=== PATIENT | female | born 1950 | race Caucasian/White ===

== ENCOUNTER 2017-07-12 14:34 | Outpatient (CLI) | payer MEDICARE, OTHER ==
--- NOTE | 2017-07-12 15:53 | MRI Report ---
EXAM: LEFT KNEE MRI WITHOUT CONTRAST EXAM DATE: 07/12/2017 03:26 PM. CLINICAL HISTORY: Left knee gives out. Possible meniscal tear. History of osteoarthritis in both knee s. COMPARISON: Prior knee x-ray 06/23/2017. TECHNIQUE: Multiplanar, multisequence T1-weighted and fluid-sensitive sequences of the knee without c ontrast. Other: None. FINDINGS: Bones: There is subchondral edema in the lateral aspect of the patella and lateral aspect of the femo ral trochlea. There is tricompartmental osteophyte formation. Articular Cartilage: There is severe thinning of the hyaline cartilage of the patella, denudation of the lateral patellar facet. There is moderate thinning of the hyaline cartilage of both the medial an d lateral compartments. Medial Meniscus: The medial meniscus is intact. Lateral Meniscus: The lateral meniscus is intact. Cruciate Ligaments: The anterior and posterior cruciate ligaments are intact. Collateral Ligaments: The medial collateral and lateral collateral ligamentous structures are intact. Tendons: The quadriceps, patellar, semimembranosus, and popliteus tendons are unremarkable. Musculature: No edema or fatty atrophy. Other: There is a small joint effusion. No popliteal cyst. No loose bodies. The medial and lateral r [place] are intact. The subcutaneous tissues and fat pads are unremarkable. IMPRESSION: 1. Moderate tricompartmental osteoarthritis worst in the patellofemoral compartment. 2. Small joint effusion. [facility] MUSCULOSKELETAL RADIOLOGY SECTION Referring Provider Line: [phone] SITE ID: [id number]
== END 2017-07-12 14:35 | disposition home or self-care (01) ==
LOC: DI 14:34
PROVIDERS: ATTEND Family Medicine
DX: M17.12 Unilateral primary osteoarthritis, left knee (principal); M25.462 Effusion, left knee

== ENCOUNTER 2017-10-29 12:29 | Outpatient (CLI) | payer MEDICARE, OTHER | END 2017-10-29 12:30 | disposition critical access hospital (66) | LOC: EMS 12:29 | PROVIDERS: ATTEND Surgery | DX: R55 Syncope and collapse (principal); R53.1 Weakness; R46.4 Slowness and poor responsiveness | CPT/HCPCS: A0425; A0427 ==

== ENCOUNTER 2017-10-29 12:34 | Emergency (ER) | payer MEDICARE, OTHER ==
--- NOTE | 2017-10-29 13:16 | ED Physician Documentation ---
PD HPI SYNCOPE - Stated complaint Stated Complaint: SYNCOPE/ SZ - Chief complaint Chief Complaint: Neuro - History obtained from History obtained from: Patient - History of Present Illness Witnessed: Witnessed (by and churchgoers.) Timing - onset: Today Duration: Minutes (she had felt somewhat lightheaded this morning but then improved. Some less appetite today and yesterday. [place] well enough to go to [employer]. She felt some lightheaded and nausea while sitting up (had been standing prior to that). saw she looked pale and she slumped over before he could ask her to lie down. She did not fall. Helped to floor and awoke minute or so later. Denies chest nor abd pain. Mild headache.) Preceding symptoms: Nausea / vomiting, Light headed, Generalized weakness. No: Headache, Chest pain, Palpitations, Dyspnea, Abdominal pain Associated symptoms: Headache (after awakening). No: Seizure ( says her hands tremored a bit but no convulsive movements per se.), Chest pain, Palpitations Contributing factors: Decreased PO intake. No: Recent med change, Noxious stimulae, Emotional upset Injury occurred: No: Fell, Head injury, Neck injury Similar symptoms before: No diagnosis (she gets feeling general weakness and lightheaded some mornings but feels better if just lies down for a few minutes.) Recently seen: Not recently seen Review of Systems Constitutional: denies: Fever, Chills, Myalgias Nose: denies: Rhinorrhea / runny nose, Congestion Throat: denies: Sore throat Cardiac: denies: Chest pain / pressure, Palpitations Respiratory: denies: Dyspnea, Cough GI: reports: Nausea (feeling of less appetite the past day or so.). denies: Abdominal Pain, Vomiting, Constipation, Diarrhea : denies: Dysuria, Frequency Musculoskeletal: denies: Neck pain, Back pain Neurologic: reports: Generalized weakness, Syncope. 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 No: Moist mucous membranes - Neck Neck: Supple, no meningeal sign, No adenopathy, Thyroid normal, No JVD - Cardiac Cardiac: RRR, No murmur - Respiratory Respiratory: Clear bilaterally - Abdomen Abdomen: Normal bowel sounds, Soft, Non tender, Non distended - Back Back: No CVA TTP - Derm Derm: Normal color, Warm and dry - Extremities Extremities: No deformity, No tenderness to palpate, Normal ROM s pain, No edema , No calf tenderness / cord - Neuro Neuro: Alert and oriented X 3, computer lab assistant 2-12 intact, No motor deficit, No sensory deficit, Normal speech Eye Opening: Spontaneous Motor: Obeys Commands Verbal: Oriented GCS Score: 15 - Psych Psych: Normal mood Results - Vitals Vitals: Oxygen O2 Source Room air - EKG (time done) 12:41 Rate: Rate (enter#) (76) Rhythm: NSR [place]: Normal Intervals: Normal OK QRS: Normal Ischemia: Normal ST segments. No: ST elevation c/w ischemia, ST elevation c/w repol, ST depression Compare to prior EKG: Old EKG unavailable Computer interpretation: Agree with computer - Labs Labs: Laboratory Tests 10/29/17 10/29/17 10/29/17 12:20 12:20 12:20 WBC 10.5 RBC 3.80 L Hgb 13.1 Hct 37.3 MCV 98.1 MCH 34.5 H MCHC 35.2 RDW 12.5 Plt Count 192 MPV 8.0 Neut # 8.2 H Lymph # 1.0 L [place] # 1.2 H Eos # 0.1 Baso # 0.0 Absolute Nucleated RBC 0.00 Nucleated RBC % 0.0 Sodium 130 L Potassium 4.2 Chloride 95 L Carbon Dioxide 27 Anion Gap 8.0 BUN 13 Creatinine 0.9 Estimated GFR (MDRD) 63 L Glucose 140 H Calcium 8.7 Magnesium 1.7 Total Bilirubin 0.6 AST 36 ALT 25 Alkaline Phosphatase 91 Troponin I Total Protein 9.2 H Albumin 3.5 Globulin 5.7 H Albumin/Globulin Ratio 0.6 L Lipase 38 Last Dose Date UNKNOWN Last Dose Time UNKNOWN Carbamazepine 7.5 10/29/17 12:20 WBC RBC Hgb Hct MCV MCH MCHC RDW Plt Count MPV Neut # Lymph # [place] # Eos # Baso # Absolute Nucleated RBC Nucleated RBC % Sodium Potassium Chloride Carbon Dioxide Anion Gap BUN Creatinine Estimated GFR (MDRD) Glucose Calcium Magnesium Total Bilirubin AST ALT Alkaline Phosphatase Troponin I < 0.04 Total Protein Albumin Globulin Albumin/Globulin Ratio Lipase Last Dose Date Last Dose Time Carbamazepine PD MEDICAL DECISION MAKING - ED course Complexity details: reviewed results, considered differential, d/w patient Departure - Departure Disposition: Home, Self Care Clinical Impression: Syncope Qualifiers: Syncope type: unspecified Qualified Code(s): R55 - Syncope and collapse Condition: Stable Record reviewed to determine appropriate education?: Yes Instructions: ED Fainting Unkn Cause Follow-Up: Joel Ramirez DO [Primary Care Provider] - Comments: Drink lots of fluids. I do not have the obvious cause for your fainting episode. See how you do over the next few days and follow-up with your primary care if persistent lightheadedness or general weakness. It may be a viral type illness at this point with some under hydration. Discharge Date/Time: 10/29/17 15:47
[2017-10-29 13:19] LABS: BASOPHILS % (AUTO) 0.3 %; EOSINOPHILS # (AUTO) 0.1 10^3/uL (0.0-0.7); EOSINOPHILS % (AUTO) 0.9 %; HGB - HEMOGLOBIN 13.1 g/dL (12.0-16.0); LYMPHOCYTES % (AUTO) 9.6 %; MEAN CORPUSCULAR HEMOGLOBIN 34.5 pg (27.0-31.0); MEAN CORPUSCULAR HGB CONC 35.2 g/dL (32.0-36.0); MEAN CORPUSCULAR VOLUME 98.1 fL (81.0-99.0); MONOCYTES # (AUTO) 1.2 10^3/uL (0.0-1.0); MONOCYTES % (AUTO) 11.5 %; NEUTROPHILS # (AUTO) 8.2 10^3/uL (1.5-6.6); NEUTROPHILS % (AUTO) 77.7 %; PLT - PLATELET COUNT 192 10^3/uL (130-450); RED CELL DISTRIBUTION WIDTH 12.5 % (12.0-15.0); WHITE BLOOD COUNT 10.5 x10^3/uL (4.8-10.8)
[2017-10-29 13:24] LABS: ALBUMIN 3.5 g/dL (3.2-5.5); ALBUMIN/GLOBULIN RATIO 0.6 (1.0-2.2); BILIRUBIN,TOTAL 0.6 mg/dL (0.2-1.0); CALCIUM 8.7 mg/dL (8.5-10.3); CREATININE 0.9 mg/dL (0.4-1.0); TOTAL PROTEIN 9.2 g/dL (6.7-8.2)
[2017-10-29] MEDS ORDERED: SODIUM CHLORIDE 0.9% 1,000 ML IV ONE (13:52)
[2017-10-29 14:11] LABS: CARBAMAZEPINE (TEGRETOL) 7.5 ug/mL; MAGNESIUM 1.7 mg/dL (1.7-2.8)
[2017-10-29] MEDS ORDERED: KETOROLAC 60 MG/2 ML VIAL IVP STA (14:43)
[2017-10-29 15:32] VITALS: BP 120/72
== END 2017-10-29 15:47 | disposition home or self-care (01) ==
LOC: EDUNIT# → ED 12:34
DX: R55 Syncope and collapse (principal); R94.31 Abnormal electrocardiogram [ECG] [EKG]
CPT/HCPCS: 36415; 80053; 80156; 83690; 83735; 84484; 85025; 93005; 96361; 96374; 99284

== ENCOUNTER 2020-03-25 12:11 | Outpatient (CLI) | payer MEDICARE, OTHER ==
[2020-03-25] MEDS ORDERED: REGADENOSON 0.4 MG/5 ML SYRINGE IVP ONE ×2 (13:39→16:56)
--- NOTE | 2020-03-25 17:22 | CARDIAC PROCEDURE NOTE ---
DATE OF SERVICE: 03/25/2020 Physician: Radha Perdue MD, [facility] INDICATIONS Poor exercise tolerance, fatigue, R53.83. CARDIAC RISK FACTORS Advanced age, obesity, unknown cholesterol status, and family history of heart disease. DESCRIPTION OF PROCEDURE After signing informed consent, the patient underwent a Lexiscan pharmaceutical stress test with nuclear myocardial perfusion imaging. RESTING HEART RATE: 67. PEAK HEART RATE: 94. RESTING BLOOD PRESSURE: 102/60. PEAK BLOOD PRESSURE: 144/62. Lexiscan was infused per protocol. The patient had brief shortness of breath, then developed a headache, she had no chest pain. She had mild, brief epigastric pressure. Oxygen saturation was 97% on room air throughout the entire test. RESTING EKG: Normal sinus rhythm, first-degree AV block, left atrial enlargement, early R/S transition. EKG AT PEAK: No new ST segment or T-wave changes. SUMMARY 1. Abnormal resting electrocardiogram. 2. No ischemic changes occurred during this pharmaceutical stress test. 3. Nuclear images reported separately. 4. This patient's cardiac risk based on all the above: Moderate. TD: 03/25/2020 16:27 MTDLidia
--- NOTE | 2020-03-26 12:41 | Nuclear Medicine Report ---
PROCEDURE: Rest and exercise myocardial perfusion SPECT with gated imaging and ejection fraction INDICATIONS: LEXISCAN, POOR EXCERSISE RADIOPHARMACEUTICAL: 14.9 mCi Tc-99m Myoview IV at rest and 44.0 mCi Tc-99m Myoview IV at peak exerc ise. [id number] was performed. TECHNIQUE: Radiopharmaceutical was injected at peak stress test, and also at rest. SPECT images wer e obtained. SPECT myocardial perfusion images were displayed in short axis, horizontal long axis, an d vertical long axis views. Gated images were reviewed using Auto[employer] software. COMPARISON: None available. FINDINGS: Raw data: There is good myocardial labeling by radiotracer. No significant motion artifacts. Lung- to-heart ratio is 0.25 (normal is less than 0.38 for tetrafosmin tracer). There is breast attenuatio n artifact in the anterior wall. Left ventricle function: Gated images demonstrate normal left ventricle wall thickening. No segment al wall motion abnormality. No transient ischemic dilation; TID is 0.96 (normal less than 1.3). The left ventricle resting end-diastolic volume is normal. Left ventricle stress ejection fraction is 7 0%; normal values are above 45%. Myocardial perfusion: There is partially reversible perfusion defect in the anterolateral wall and a nterior apex, most likely due to breast attenuation and shifting breast artifacts. There is otherwise normal distribution of activity in the left and right ventricular myocardium. No fixed or reversibl e perfusion defects. IMPRESSION: 1. Probably normal myocardial perfusion images. No convincing evidence for myocardial ischemia or inf arct. 2. Breast attenuation and shifting breast artifacts. 3. Normal left ventricular volume and systolic function. PQRS ATTESTATIONS: Measure 322 - Is this imaging test primarily performed on a low-risk surgery patient for preoperative evaluation within 30 days preceding their low-risk non-cardiac surgery? Low-risk surgery is defined as cardiac or myocardial infarction less than 1%, including (but not limited to) endoscopic pr ocedures, superficial procedures, cataract surgery, and excisional breast surgery: Answer: No Measure 323 - Is this imaging test performed primarily for the monitoring of an asymptomatic patient who had percutaneous coronary intervention on the visit date or within 2 years of the visit date? An swer: No Measure 324 - Is this imaging test performed primarily for the initial detection and risk assessment on an asymptomatic, low coronary heart disease patient? Low CHD risk definition = clinicians should consider the maximum number of available patient factors used to estimate risk based on [place] (A TP III criteria), typically age, gender, diabetes, smoking status, and use of blood pressure medicati on, and integrate age appropriate estimates for missing elements, such as LDL or standard blood press ure. Answer: No Reviewed by: Gonzalo Gillespie MD on 03/26/2020 12:40 PM PDT Approved by: Gonzalo Gillespie MD on 03/26/2020 12:40 PM PDT Station ID: [id number]
== END 2020-03-25 12:12 | disposition home or self-care (01) ==
LOC: DI 12:11
PROVIDERS: ATTEND Family Medicine
DX: R53.83 Other fatigue (principal); R94.31 Abnormal electrocardiogram [ECG] [EKG]
CPT/HCPCS: 78452; 93017; A9500; J2785

== ENCOUNTER 2021-11-27 14:52 | Outpatient (CLI) | payer MEDICARE, OTHER | END 2021-11-27 14:53 | disposition home or self-care (01) | LOC: RT 14:52 | PROVIDERS: ATTEND Family Medicine | DX: R06.02 Shortness of breath (principal) | CPT/HCPCS: 94010 ==

== ENCOUNTER 2022-09-07 13:27 | Outpatient (CLI) | payer MEDICARE, OTHER ==
[2022-09-07 13:49] LABS: CALCIUM 8.7 mg/dL (8.5-10.3); CREATININE 0.8 mg/dL (0.4-1.0)
== END 2022-09-07 13:28 | disposition home or self-care (01) ==
LOC: LAB 13:27
PROVIDERS: ATTEND Internal Medicine
DX: I10 Essential (primary) hypertension (principal)
CPT/HCPCS: 36415; 80048

== ENCOUNTER 2023-05-03 11:23 | Outpatient (CLI) | payer MEDICARE, OTHER ==
--- NOTE | 2023-05-03 18:24 | XRAY Report ---
PROCEDURE: Knee 3 View BILAT INDICATIONS: KNEE INSTABILITY TECHNIQUE: 3 views of the knee was obtained. COMPARISON: None FINDINGS: Bones: No fractures or dislocations. No suspicious bony lesions. Moderate bilateral medial compartm ent joint space narrowing. Moderate patellofemoral joint space and narrowing noted bilaterally as wel l. Soft tissues: No knee joint effusion. No suspicious soft tissue calcifications or masses. IMPRESSION: Moderate joint space narrowing without remodeling Reviewed by: Rafi Camejo MD on 05/03/2023 5:23 PM EUGENIE Approved by: Rafi Camejo MD on 05/03/2023 5:23 PM AKSHARRI Station ID: [id number]
== END 2023-05-03 11:24 | disposition home or self-care (01) ==
LOC: DI 11:23
PROVIDERS: ATTEND Family Medicine
DX: M25.361 Other instability, right knee (principal); M25.362 Other instability, left knee; M17.0 Bilateral primary osteoarthritis of knee

== ENCOUNTER 2023-06-08 13:35 | Emergency (ER) | payer MEDICARE, OTHER ==
--- NOTE | 2023-06-08 14:20 | XRAY Report ---
PROCEDURE: Chest 1 View X-Ray INDICATIONS: cough TECHNIQUE: One view of the chest was acquired. COMPARISON: 03/02/2022. FINDINGS: Surgical changes and devices: Left chest wall pacemaker leads are in the region of right atrium and right ventricle. Lungs and pleura: No pleural effusions or pneumothorax. Lungs are clear. Mediastinum: Mediastinal contours appear normal. Heart size is enlarged. Bones and chest wall: No suspicious bony lesions. Overlying soft tissues appear unremarkable. IMPRESSION: No acute cardiopulmonary process. Reviewed by: Lester Cowart MD on 06/08/2023 2:19 PM PDT Approved by: Lester Cowart MD on 06/08/2023 2:19 PM PDT Station ID: [id number]
[2023-06-08] MEDS ORDERED: SODIUM CHLORIDE 0.9% 1,000 ML IV STA (14:23)
[2023-06-08 14:28] LABS: BASOPHILS % (AUTO) 0.3 %; EOSINOPHILS # (AUTO) 0.1 10^3/uL (0.0-0.7); EOSINOPHILS % (AUTO) 2.8 %; HCT - HEMATOCRIT 33.6 % (37.0-47.0); HGB - HEMOGLOBIN 11.1 g/dL (12.0-16.0); LYMPHOCYTES # (AUTO) 0.6 10^3/uL (1.5-3.5); LYMPHOCYTES % (AUTO) 19.1 %; MEAN PLATELET VOLUME 9.2 fL (7.9-10.8); MONOCYTES # (AUTO) 0.4 10^3/uL (0.0-1.0); MONOCYTES % (AUTO) 11.7 %; NEUTROPHILS # (AUTO) 2.1 10^3/uL (1.5-6.6); NEUTROPHILS % (AUTO) 65.8 %; PLT - PLATELET COUNT 84 10^3/uL (130-450); RED BLOOD COUNT 3.17 10^6/uL (4.20-5.40); RED CELL DISTRIBUTION WIDTH 14.3 % (12.0-15.0); WHITE BLOOD COUNT 3.2 x10^3/uL (4.8-10.8)
[2023-06-08 14:42] LABS: ALBUMIN 2.8 g/dL (3.2-5.5); ALBUMIN/GLOBULIN RATIO 0.5 (1.0-2.2); BILIRUBIN,TOTAL 1.1 mg/dL (0.2-1.0); CREATININE 0.6 mg/dL (0.6-1.3); MAGNESIUM 1.3 mg/dL (1.7-2.3); POTASSIUM 4.1 mmol/L (3.5-4.5); TOTAL PROTEIN 8.4 g/dL (6.4-8.9)
--- NOTE | 2023-06-08 15:07 | ED Physician Documentation ---
History of Present Illness - Stated complaint Stated Complaint: C+ CONFUSION/DIZZY - Chief complaint Chief Complaint: Neuro - History obtained from History obtained from: Patient, Family - History of Present Illness Pain level max: 0 Pain level now: 0 - Additonal information Additional information: Patient is a 72-year-old female who was treated last week for COVID with Paxlovid. Has had decreased appetite since then. Decreased oral intake. Feels lightheaded and dizzy. No falls. No headache. Mild residual cough. No fevers. No nausea or vomiting. No diarrhea. Saw her PCP over a telemedicine consult today and was referred to the ER for weakness. Nothing makes it better or worse. 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 HEENT: None Derm: None - Past Surgical History Past Surgical History: Yes General: Cholecystectomy - Present Medications Home Medications: Ambulatory Orders Medication Instructions Recorded Confirmed Atorvastatin Calcium 40 mg PO DAILY 06/08/23 06/08/23 Carbamazepine [Equetro] 600 mg PO QPM 06/08/23 06/08/23 Losartan Potassium 25 mg PO DAILY 06/08/23 06/08/23 - Allergies Allergies/Adverse Reactions: Allergies Allergy/AdvReac Type Severity Reaction Status Date / Time No Known Drug Allergies Allergy Verified 06/08/23 13:50 - Social History Does the pt smoke?: No Smoking Status: Never smoker PD ED PE NORMAL - Vitals Vital signs reviewed: Yes - General General: Alert and oriented X 3, No acute distress - HEENT HEENT: PERRL, Moist mucous membranes - Neck Neck: Supple, no meningeal sign - Cardiac Cardiac: RRR, Strong equal pulses - Respiratory Respiratory: No respiratory distress, Clear bilaterally - Abdomen Abdomen: Soft, Non tender, Non distended - Back Back: No spinal TTP - Derm Derm: Warm and dry - Extremities Extremities: No edema, No calf tenderness / cord - Neuro Neuro: Alert and oriented X 3, c software developer 2-12 intact, No motor deficit, No sensory deficit, Normal speech - Psych Psych: Normal mood, Normal affect Results - Vitals Vitals: Vital Signs - 24 hr 10/19/23 10/19/23 13:37 16:29 Temperature 37.2 C Heart Rate 74 71 Respiratory 19 18 Rate Blood Pressure 145/69 H 177/90 H O2 Saturation 95 99 Oxygen O2 Source Room air - Labs Labs: Laboratory Tests 06/08/23 06/08/23 06/08/23 14:22 14:22 15:54 WBC 3.2 L RBC 3.17 L Hgb 11.1 L Hct 33.6 L MCV 106.0 H MCH 35.0 H MCHC 33.0 RDW 14.3 Plt Count 84 L MPV 9.2 Neut # (Auto) 2.1 Lymph # (Auto) 0.6 L [place] # (Auto) 0.4 Eos # (Auto) 0.1 Baso # (Auto) 0.0 Absolute Nucleated RBC 0.00 Nucleated RBC % 0.0 Sodium 132 L Potassium 4.1 Chloride 99 L Carbon Dioxide 30 Anion Gap 3.0 L BUN 10 Creatinine 0.6 Estimated GFR (MDRD) 99 Glucose 104 Calcium 9.0 Phosphorus 3.0 Magnesium 1.3 L Total Bilirubin 1.1 H AST 57 H ALT 28 Alkaline Phosphatase 105 Total Protein 8.4 Albumin 2.8 L Globulin 5.6 H Albumin/Globulin Ratio 0.5 L Lipase 51 Urine Color DARK YELLOW Urine Clarity CLEAR Urine pH 6.5 Ur Specific [place] 1.020 Urine Protein NEGATIVE Urine Glucose (UA) NEGATIVE Urine Ketones NEGATIVE Urine Occult Blood NEGATIVE Urine Nitrite NEGATIVE Urine Bilirubin NEGATIVE Urine Urobilinogen 1 (NORMAL) Ur Leukocyte Esterase NEGATIVE Ur Microscopic Review NOT INDICATED Urine Culture Comments NOT INDICATED - Rads (name of study) cxr Relevant Findings:: Final report received, See rad report PD Medical Decision Making - ED course Complexity details: reviewed results, re-evaluated patient, considered differential, d/w patient, d/w family ED course: No acute findings on chest x-ray. Patient was given IV fluids. Her laboratory testing does show a mild thrombocytopenia, anemia and mild leukopenia. Has not had blood work here in the last 5 years. Unclear if this is new or old. P ossible that this is viral myelosuppression. Also appears dehydrated and has low magnesium as well. Was given IV magnesium as well. Patient feels better after IV fluids and IV magnesium. Ambulating without difficulty. No focal neurological deficits. Encouraged increased p.o. hydration at home and follow- up closely with her doctor. Patient counseled regarding signs and symptoms for which I believe and urgent re-evaluation would be necessary. Patient with good understanding of and agreement to plan and is comfortable going home at this time This document was made in part using voice recognition software. While efforts are made to proofread this document, sound alike and grammatical errors may occur. Departure - Departure Disposition: 01 Home, Self Care Clinical Impression: Dehydration, Hypomagnesemia Condition: Good Instructions: ED Dehydration Follow-Up: Joel Ramirez DO [Primary Care Provider] - Within 1 week Comments: You were dehydrated and your magnesium levels were low. It is important you follow-up with your primary care doctor for further care. Please make sure you are drinking plenty of fluids at home. Your white blood cell count, platelets and red blood cells were also low, her last blood work here is from 5 years ago, so I do not know if this is normal for you or not. This can be seen following a viral illness and usually will return to your normal levels on its own, but needs to be monitored with your doctor. Please return if you worsen. Your x- ray does not show any acute abnormalities today. Forms: PCP List Discharge Date/Time: 06/08/23 16:29
[2023-06-08] MEDS ORDERED: MAGNESIUM SULFATE 2 GRAM 2 GM/50 ML BAG IV ONE (15:08)
[2023-06-08 16:06] LABS: BILIRUBIN,URINE NEGATIVE (NEGATIVE); GLUCOSE, URINE (UA) NEGATIVE (NEGATIVE); KETONES,URINE (UA) NEGATIVE (NEGATIVE); LEUKOCYTE ESTERASE, URINE NEGATIVE (NEGATIVE); NITRITE,URINE NEGATIVE (NEGATIVE); OCCULT BLOOD,URINE NEGATIVE (NEGATIVE); PH,URINE 6.5 PH (5.0-7.5); PROTEIN,URINE NEGATIVE (NEGATIVE); UROBILINOGEN,URINE 1 (NORMAL) E.U./dL (NORMAL)
[2023-06-08 16:09] LABS: CLARITY,URINE CLEAR (CLEAR)
[2023-06-08 16:33] VITALS: BP 177/90; O2SAT 99
== END 2023-06-08 16:29 | disposition home or self-care (01) ==
LOC: ED 13:35
DX: E86.0 Dehydration (principal); E83.42 Hypomagnesemia
CPT/HCPCS: 36415; 80053; 81001; 81003; 83690; 83735; 84100; 85025; 87086; 96365; 99283

== ENCOUNTER 2023-06-13 08:28 | Outpatient (CLI) | payer MEDICARE, OTHER ==
--- NOTE | 2023-06-13 16:28 | Ultrasound Report ---
PROCEDURE: Abdomen Limited INDICATIONS: ABN LIVER FUNCTION TEST TECHNIQUE: Real-time focused scanning was performed of the abdomen, with image documentation. COMPARISONS: None. FINDINGS: Liver: Measures 16.3 cm. Coarsened echotexture. Gallbladder: Absent. Biliary ducts: Intrahepatic bile ducts are non-dilated. Extrahepatic bile duct caliber measures 6 m m. Normal is 6-7 mm or less in diameter, or 10 mm or less post-cholecystectomy. Pancreas: Visualized portions of the pancreas are sonographically normal. Tail was not well seen. Right kidney: Normal in size and echotexture. Right kidney measures 11.7 cm long. No hydronephrosis or nephrolithiasis. No solid masses. No complex renal cystic lesions which require follow-up. IMPRESSION: 1. Coarsened hepatic echotexture. This could be seen in hepatocellular disease such as cirrhosis and/ or hepatic steatosis. 2. Gallbladder is absent. Reviewed by: Tj Wolff MD on 06/13/2023 4:26 PM PDT Approved by: Tj Wolff MD on 06/13/2023 4:26 PM PDT Station ID: [id number]
== END 2023-06-13 08:29 | disposition home or self-care (01) ==
LOC: DI 08:28
PROVIDERS: ATTEND Internal Medicine
DX: R94.5 Abnormal results of liver function studies (principal); E83.10 Disorder of iron metabolism, unspecified; Z90.49 Acquired absence of other specified parts of digestive tract

== ENCOUNTER 2023-11-12 02:44 | Outpatient (CLI) | payer MEDICARE, OTHER | END 2023-11-12 23:59 | disposition critical access hospital (66) | LOC: EMS 02:44 | DX: R46.4 Slowness and poor responsiveness (principal); R53.1 Weakness; R53.83 Other fatigue; R56.9 Unspecified convulsions; R06.81 Apnea, not elsewhere classified | CPT/HCPCS: A0425; A0429 ==

== ENCOUNTER 2023-11-12 03:01 | Emergency (ER) | payer MEDICARE, OTHER ==
--- NOTE | 2023-11-12 03:09 | ED Physician Documentation ---
History of Present Illness - Stated complaint Stated Complaint: SZ LIKE ACTIVITY/CONFUSION - History obtained from History obtained from: Family - Additonal information Additional information: HPI is from patient's (who is in ED at patient's bedside) as well as patient although patient has limited recall of tonight's events. and patient were in bed; he awoke approximately 2 hours [employer] when patient sat up and had gotten to edge of bed where she was sitting. He asked the patient why she was getting up and she apparently responded that she was going to use the bathroom. fell back asleep but awoke 30 minutes later to find patient was still seated in the same spot on the bed. He again asked her what was going on and she said she was going to use the bathroom. He says she then stood up and started to walk towards the bathroom. She was not using her walker, and says she is supposed to only ambulate with the walker. The patient rapidly became weak (generalized) and confused. The immediately got up and helped her to the ground; there was no fall nor injury. called 911 with the sole intention of having a lift assist. However, just as EMS arrived, the patient had a generalized seizure with loss of consciousness. The seizure was witnessed by EMS, lasted approximately 1 to 2 minutes followed by a 5 to 10- minute post-ictal phase. Patient has a known seizure disorder, last seizure was approximately 1 year ago. 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 Patient takes Tegretol for seizures; no recent missed doses no changes in the dosing/schedule. FSBS by EMS was 109 Review of Systems Constitutional: denies: Fever Cardiac: denies: Chest pain / pressure Respiratory: denies: Dyspnea Neurologic: reports: Seizure. denies: Headache PD PAST MEDICAL HISTORY - Past Medical History Cardiovascular: None Respiratory: None Endocrine/Autoimmune: None GI: None IRON PILER: None HEENT: None Derm: None - Past Surgical History Past Surgical History: Yes General: Cholecystectomy - Present Medications Home Medications: Ambulatory Orders Medication Instructions Recorded Confirmed Losartan Potassium 25 mg PO DAILY 06/08/23 11/12/23 Atorvastatin [Lipitor] 20 mg PO QPM 11/12/23 11/12/23 Furosemide [Lasix] 40 mg PO DAILY 11/12/23 11/12/23 Omeprazole 20 mg PO DAILY 11/12/23 11/12/23 carBAMazepine [TEGretol] 600 mg PO QPM 11/12/23 11/12/23 - Allergies Allergies/Adverse Reactions: Allergies Allergy/AdvReac Type Severity Reaction Status Date / Time No Known Drug Allergies Allergy Verified 11/12/23 03:12 - Social History Does the pt smoke?: No Smoking Status: Never smoker PD ED PE NORMAL - Vitals Vital signs reviewed: Yes - General General: Alert and oriented X 3, No acute distress, Well developed/nourished - HEENT HEENT: Atraumatic, PERRL, EOMI, Moist mucous membranes - Neck Neck: Supple, no meningeal sign - Cardiac Cardiac: RRR, No murmur - Respiratory Respiratory: No respiratory distress, Clear bilaterally - Abdomen Abdomen: Soft, Non tender - Neuro Neuro: Alert and oriented X 3, academic computing director 2-12 intact, No motor deficit, No sensory deficit, Normal speech Eye Opening: Spontaneous Motor: Obeys Commands Verbal: Oriented GCS Score: 15 Results - Vitals Vitals: Oxygen O2 Source Room air - EKG (time done) No standard instances EKG releavant findings:: EKG personally interpreted by author of this note. Relevant findings are: Rate: Rate (enter#) (92) Rhythm: NSR [place]: Normal Intervals: Normal VA, Prolonged QT (borderline) QRS: Low voltage (borderline) Ischemia: Normal ST segments - Labs Labs: Laboratory Tests 11/12/23 11/12/23 05:01 05:01 WBC 6.8 RBC 2.83 L Hgb 9.7 L Hct 30.0 L MCV 106.0 H MCH 34.3 H MCHC 32.3 RDW 16.2 H Plt Count 83 L MPV 10.3 Neut # (Auto) 5.2 Lymph # (Auto) 0.9 L [place] # (Auto) 0.6 Eos # (Auto) 0.0 Baso # (Auto) 0.0 Absolute Nucleated RBC 0.00 Nucleated RBC % 0.0 Sodium 135 Potassium 3.6 Chloride 105 Carbon Dioxide 25 Anion Gap 5.0 L BUN 14 Creatinine 1.0 Estimated GFR (MDRD) 55 L Glucose 124 H Calcium 8.3 L Total Bilirubin 1.6 H AST 63 H ALT 31 Alkaline Phosphatase 95 Total Protein 7.9 Albumin 2.4 L Globulin 5.5 H Albumin/Globulin Ratio 0.4 L Lipase 40 - Rads (name of study) CTH Relevant Findings:: Prelim report reviewed, See rad report PD Medical Decision Making - ED course Complexity details: reviewed results, re-evaluated patient, considered differential, d/w patient, d/w family ED course: No concerning nor diagnostic findings on tonight's tests including EKG, blood test, CT head. Mild but noncontributory abnormalities on blood tests include mild anemia (hgb 9.7) and thrombocytopenia (83), hyperbilirubinemia (1.6 total bilirubin). Normal WBC. CT head is unremarkable (evidence of prior right occipital craniotomy noted). The patient did not have any recurrence of seizure during ED stay (over 4 hours). No apparent provocation for tonight's seizure. 's description of events could be consistent with a near-syncopal hypotensive episode, leading to the generalized weakness as well as confusion due to cerebral hypoperfusion. It was not until EMS arrived that the patient had the seizure. Given that she has not had a seizure for the past 6 months, and otherwise has been controlled for several decades on the same dose of Tegretol, I do not think the patient would benefit from change in her Tegretol dosing/scheduling at this time. Return precautions were discussed. I recommended that or patient get in touch with her neurologist to arrange for next available appointment. Departure - Departure Disposition: 01 Home, Self Care Clinical Impression: Weakness, Seizure Condition: Good Instructions: ED Seizure Recurrent, ED Weakness [facility] Comments: There were no concerning or diagnostic findings on tonight's test, including the blood tests and the CT scan of the head. Mild and incidental abnormalities include red blood cell levels that are slightly below the normal range as well as mild abnormalities of some of the liver function tests. Continue with your current medications as prescribed. Contact your primary care provider when the office is next open to arrange for next available appointment for reevaluation/follow-up. Forms: PCP List Discharge Date/Time: 11/12/23 07:15
[2023-11-12 05:06] LABS: BASOPHILS % (AUTO) 0.3 %; EOSINOPHILS % (AUTO) 0.4 %; HGB - HEMOGLOBIN 9.7 g/dL (12.0-16.0); LYMPHOCYTES # (AUTO) 0.9 10^3/uL (1.5-3.5); LYMPHOCYTES % (AUTO) 13.5 %; MEAN CORPUSCULAR HEMOGLOBIN 34.3 pg (27.0-31.0); MEAN CORPUSCULAR HGB CONC 32.3 g/dL (32.0-36.0); MEAN PLATELET VOLUME 10.3 fL (7.9-10.8); MONOCYTES # (AUTO) 0.6 10^3/uL (0.0-1.0); NEUTROPHILS # (AUTO) 5.2 10^3/uL (1.5-6.6); NEUTROPHILS % (AUTO) 76.5 %; PLT - PLATELET COUNT 83 10^3/uL (130-450); RED BLOOD COUNT 2.83 10^6/uL (4.20-5.40); RED CELL DISTRIBUTION WIDTH 16.2 % (12.0-15.0); WHITE BLOOD COUNT 6.8 x10^3/uL (4.8-10.8)
[2023-11-12 05:24] LABS: ALBUMIN 2.4 g/dL (3.2-5.5); ALBUMIN/GLOBULIN RATIO 0.4 (1.0-2.2); BILIRUBIN,TOTAL 1.6 mg/dL (0.2-1.0); CALCIUM 8.3 mg/dL (8.5-10.3); POTASSIUM 3.6 mmol/L (3.5-4.5); TOTAL PROTEIN 7.9 g/dL (6.4-8.9)
[2023-11-12 07:24] VITALS: BP 125/76; O2SAT 96
--- NOTE | 2023-11-12 08:55 | CT Report ---
PROCEDURE: Head WO INDICATIONS: confusion, seizure TECHNIQUE: Noncontrast 4.5 mm thick angled axial sections acquired from the foramen magnum to the vertex. For r adiation dose reduction, the following was used: automated exposure control, adjustment of mA and/or kV according to patient size. COMPARISON: None. FINDINGS: Image quality: Excellent. CSF spaces: Basal cisterns are patent. No extra-axial fluid collections. Ventricles are normal in size and shape. Brain: No midline shift. No intracranial masses or hemorrhage. Awan-white matter interface is norm al. Skull and face: Calvarium and visualized facial bones are intact, without suspicious lesions. Posts urgical changes of a right occipital bone. Sinuses: Visualized sinuses and mastoids are clear. IMPRESSION: No acute intracranial pathology. Prior right occipital craniotomy. Findings are concordant with preliminary interpretation provided by [facility]. Reviewed by: Joel Best MD on 11/12/2023 7:53 AM EUGENIE Approved by: Joel Best MD on 11/12/2023 7:53 AM EUGENIE Station ID: [id number]
== END 2023-11-12 07:15 | disposition home or self-care (01) ==
LOC: EDUNIT# → ED 03:01
DX: R56.9 Unspecified convulsions (principal); R53.1 Weakness; D64.9 Anemia, unspecified; D69.6 Thrombocytopenia, unspecified; E80.6 Other disorders of bilirubin metabolism; Z79.899 Other long term (current) drug therapy
CPT/HCPCS: 36415; 80053; 83690; 85025; 93005; 99283; 99284